=== PATIENT | male | born 1980 | race Caucasian/White ===

== ENCOUNTER 2025-08-13 11:23 | Emergency (ER) | payer BC, SELFPAY ==
[2025-08-13 11:26] VITALS: BP 187/128
[2025-08-13 11:28] LABS: Glucose - Point of Care 303 mg/dl (70-99)
[2025-08-13 11:38] VITALS: BMI 45.8
[2025-08-13 11:39] VITALS: BP 166/99
--- NOTE | 2025-08-13 12:14 | ED.GENMED ---
History of Present Illness
General
Chief Complaint: Skin Problem
Source: patient and spouse
Exam Limitations: none
Time Seen by Provider: 08/13/25 11:46
Nursing documentation reviewed up to this point in time: agreed with
History of Present Illness
History of Present Illness:
Patient is a 45-year-old male sent by PCP. Patient cut his anterior right lower leg on a speaker 2 weeks ago. It was very warm and swollen. PCP ordered doxycycline which he completed for a total of 7 days.
In addition patient then developed a yeast infection on his penis and was on a cream which did not help and now he is on fluconazole pills. Patient reports the warmth has resolved however still has been very intermittently swollen. He was seen
by his family doctor today and sent over for high blood sugar. This is a newer physician he has not had a recent position and has not had recent blood work.
Patient denies polyuria polydipsia. patient denies any visual issues.
Phy Exam
General Physical Exam
General Presentation: no apparent distress
General age: appears stated age
General Skin: warm and dry
General Habitus: obese
General Mental: alert
General Hydration: appears well hydrated
Neurological Exam
Neurological Exam: alert and oriented x3
Musculoskeletal Exam
Musculoskeletal Exam: other (Right lower extremity with strong pulses no obvious swelling scabbed over healed laceration no erythema or warmth strong distal pulses normal sensation no calf tenderness )
Skin Exam
Skin Exam: normal color and warm/dry
Psychiatric Exam
Psychiatric Exam: normal mood/affect
Course
Orders/Labs/Results
Orders:
Orders
08/13/25 12:14
IV Insert/Care/Rem.- Treatment PRN
0.9% Sodium Chloride 1000 ml [Nss] 1,000 ml IV BOLUS
08/13/25 12:27
B-Hydroxybutyrate Urgent
Complete Blood Count/With Diff Urgent
Comprehensive Metabolic Panel Urgent
Hemoglobin A1c [Glycohemoglobin (HgbA1c)] Urgent
Venous Doppler Lwr Ext Rt [US Periph Venous LOWER Ext RT] Urgent
Comment:
Reason For Exam: swelling
08/13/25 14:28
Urinalysis Reflex To Culture Urgent
Date Specimen was Collected: 08/13/25
Time Specimen was Collected: 14:27
08/13/25 15:04
Tib/Fib, Right 2 View [CR Leg Tibia/fibula Right 2 Vw] Urgent
Comment:
Reason For Exam: rule out foreign body
Abnormal Lab Results
08/13/25 08/13/25 08/13/25
11:26 12:27 14:28
Sodium 133 L mmol/L
(135-145)
Glucose 363 H mg/dl
(70-99)
Hemoglobin A1c 12.3 H %
(4.0-5.6)
Urine Glucose 4+ A
(Negative)
POC Glucose 303 H mg/dl
(70-99)
08/13/25 12:27
08/13/25 12:27
Vital Signs
Initial and Last Documented VS:
Initial Vital Signs
Temp Pulse Resp BP Pulse Ox
97.9 F 95 18 187/128 100
08/13/25 11:26 08/13/25 11:26 08/13/25 11:26 08/13/25 11:26 08/13/25 11:26
Last Documented Vital Signs
Temp Pulse Resp BP Pulse Ox
97.9 F 91 16 166/99 100
08/13/25 11:26 08/13/25 11:39 08/13/25 11:39 08/13/25 11:39 08/13/25 12:15
MDM/Problems Addressed
Differential Diagnosis Includes:
Not limited to new onset diabetes resolved cellulitis less likely DVT
MDM/Problems Addressed:
Patient is a 45-year-old male sent for evaluation of elevated blood sugar. Patient recently was diagnosed with cellulitis treated with antibiotics incidentally also had a yeast infection of his penis. He was seen by his primary care provider today
and his blood sugar was elevated he was sent here. He denies any polyuria polydipsia. He denies any weakness fever chills. He presents awake alert no acute distress. Blood sugar 363, beta-hydroxybutyrate 0.18, normal gap. Patient was treated for
cellulitis of the right anterior lower extremity and there is no obvious redness on exam patient did complain of mild swelling ultrasound negative for DVT will check x-ray as family doctor who I spoke with over the phone was concerned about possible
foreign body. His initial cellulitis was caused from a laceration from a broken speaker.
If x-ray negative after speaking with Dr. Salazar his family doctor will plan to discharge home with metformin 500 mg once a day until he follows up with his PCP on wed
xray neg for FB
*Radiology
Radiology exam reviewed: radiology read reviewed
*Pulse Oximetry
SaO2: 100
Oxygen Mode of Delivery: Room air
Patient hypoxic: no
*Critical Care Note
Total Time (30-74mins, 75-104mins- exclusive of procedures): Not Applicable
Patient Management
Discussion with other providers: PCP
Escalation/DeEscalation of care consider admission/obs:
Dr. Salazar
ED Attending Note
-
Portions of this chart may have been created with voice recognition software.� Occasional wrong word or��sound alike� substitutions may have occurred due to the inherent limitations of voice recognition software.
Discharge Plan
Departure
Patient Disposition: Home (Routine Discharge)
Date of Disposition: 08/13/25
Time of Disposition: 15:17
Patient with high blood pressure during this ER visit?: Yes
Condition: Fair
Covid-19: Not Applicable
Discharge Problem:
Diabetes mellitus, new onset
Instructions: Diabetes and diet, High blood sugar in adults - ED (DC), BLOOD PRESSURE
Prescriptions:
New
metformin 500 mg tablet
500 mg PO DAILY Qty: 30 0RF
Referrals:
You Salazar I., DO [Family Provider, Family Practice]
Activity Restrictions/Additional Instructions:
As discussed a new prescription for metformin 500 mg daily was sent to pharmacy take as directed. Please call your family doctor today or tomorrow morning for an appointment in 2 days on Wednesday for reevaluation .
Return to the ER for any worsening of symptoms include increased thirst increased urination nausea vomiting dizziness lightheadedness or any further concerns.
Interventions
Interventions:
*Risk Screen - Suicide Last Done: 08/13/25 11:26
*General Assessment Last Done: 08/13/25 11:26
*Neglect/Abuse Screening Last Done: 08/13/25 11:26
*ED- Fall Risk Assessment Last Done: 08/13/25 11:40
*ED COVID-19 Vaccine History Last Done: 08/13/25 11:40
*Nursing Disposition Last Done: 08/13/25 16:46
Discharge Date and Time
Discharge Date/Time: 08/13/25 16:47
Print Language: YI
[2025-08-13] MEDS: NSS 1000 IV (12:29)
[2025-08-13 12:43] LABS: Hematocrit 48.0 % (39.0-52.0); Hemoglobin 16.5 g/dL (13.0-18.0); Mean Corp Hgb Conc. 34.4 g/dL (33.0-37.0); Mean Corpuscular Volume 85.3 fL (80.0-94.0); Nucleated Red Blood Cells % 0 % (-); Platelet Count 250 10^3/uL (130-400); Red Cell Dist. Width 12.2 % (11.5-14.5)
[2025-08-13 12:58] LABS: ALT (SGPT) 29 U/L (0-50); AST (SGOT) 28 U/L (17-59); Albumin 4.3 g/dl (3.5-5.0); Alkaline Phosphatase 71 U/L (38-126); Blood Urea Nitrogen 13 mg/dl (9-20); Calcium 9.7 mg/dl (8.4-10.2); Carbon Dioxide 30 mmol/L (22-30); Chloride 99 mmol/L (98-107); Estimated Creatinine Clearance > 125 ml/min; Glucose 363 mg/dl (70-99); Potassium 4.7 mmol/L (3.5-5.1); Sodium 133 mmol/L (135-145); Total Protein 7.0 g/dl (6.3-8.2); eGFR > 60.00
[2025-08-13 14:22] LABS: Glycohemoglobin (HgbA1c) 12.3 % (4.0-5.6)
[2025-08-13 14:48] LABS: Urine Character Clear (Clear)
== END 2025-08-13 16:47 | disposition home or self-care (01) ==
LOC: EMR 11:23
PROVIDERS: Nurse Practitioner; EMERGENCY PHYSICIAN Emergency Medicine; FAMILY PHYSICIAN Family Medicine
DX: E11.9 Type 2 diabetes mellitus without complications (principal); R03.0 Elevated blood-pressure reading, without diagnosis of hypertension; E66.9 Obesity, unspecified; Z68.42 Body mass index [BMI] 45.0-49.9, adult; Z79.84 Long term (current) use of oral hypoglycemic drugs
CPT/HCPCS: 99284; 96360; 73590; 80053; 81003; 82010; 82962; 83036; 85025; 93971